=== PATIENT | male | born 1945 | race Caucasian/White ===

== ENCOUNTER 2020-07-22 13:59 | Observation (INO) | payer MEDICARE, OTHER ==
[~2020-07-22] VITALS: Ht 177.8 cm; Wt 94.3 kg
[2020-07-22 14:49] LABS: HEMOGLOBIN 16.1 gm/dl (14.0-17.5); RED BLOOD COUNT 4.94 M/UL (4.20-5.50); WHITE BLOOD COUNT 12.6 K/UL (4.5-11.0)
[2020-07-22 15:23] LABS: BUN/CREATININE RATIO 15 (0-10)
[2020-07-22] MEDS ORDERED: HYTRIN CAP 5 MG5 MG PO (18:16)
[2020-07-22] MEDS ORDERED: INDOCIN SR CAP75 MG PO (18:17)
[2020-07-22] MEDS ORDERED: CIPRO500 MG PO (18:19)
[2020-07-22] MEDS ORDERED: OMEPRAZOLE20 MG PO (18:21)
[2020-07-22] MEDS ORDERED: CLEARLAX119 GM PO (18:21)
[2020-07-22] MEDS ORDERED: HYDROCODON-ACE1 EAC6 PO (18:22)
[2020-07-22] MEDS ORDERED: AMBIEN10 MG PO (18:23)
[2020-07-22] MEDS ORDERED: ASPIRIN CHEWABL81 MG PO (18:23)
[2020-07-23 04:41] LABS: HEMOGLOBIN 14.4 gm/dl (14.0-17.5); WHITE BLOOD COUNT 11.3 K/UL (4.5-11.0)
[2020-07-23 04:46] LABS: RED BLOOD COUNT 4.44 M/UL (4.20-5.50)
[2020-07-23 04:51] LABS: BUN/CREATININE RATIO 14 (0-10)
[2020-07-24 05:32] LABS: RED BLOOD COUNT 4.34 M/UL (4.20-5.50); WHITE BLOOD COUNT 12.8 K/UL (4.5-11.0)
--- NOTE | 2020-07-24 05:46 | NUR ---
RESTED QUIETLY T/O NIGHT, VS REMAINED STABLE, DENIES COMPLAINTS, NO ACUTE DISTRESS NOTED
[2020-07-25 06:13] LABS: HEMOGLOBIN 14.6 gm/dl (14.0-17.5); RED BLOOD COUNT 4.48 M/UL (4.20-5.50); WHITE BLOOD COUNT 15.8 K/UL (4.5-11.0)
[2020-07-25 06:35] LABS: BUN/CREATININE RATIO 9 (0-10)
[2020-07-26 03:47] LABS: HEMOGLOBIN 13.8 gm/dl (14.0-17.5); RED BLOOD COUNT 4.29 M/UL (4.20-5.50); WHITE BLOOD COUNT 14.6 K/UL (4.5-11.0)
[2020-07-26 04:03] LABS: BUN/CREATININE RATIO 11 (0-10)
[2020-07-26] MEDS ORDERED: STIMULANT LAXA1 EACH PO (09:26)
[2020-07-26] MEDS ORDERED: FLAGYL500 MG PO (11:00)
== END 2020-07-26 13:19 | disposition home or self-care (01) ==
LOC: ER1 13:59 → CDU 17:41 → MED SURG 4 23:00
PROVIDERS: Emergency Medicine; Physician Assistant; ADMIT Internal Medicine
DX: K57.32 Diverticulitis of large intestine without perforation or abscess without bleeding (principal); D72.829 Elevated white blood cell count, unspecified; K59.00 Constipation, unspecified; M54.5 Low back pain; G89.29 Other chronic pain; Z87.891 Personal history of nicotine dependence; Z20.822 Contact with and (suspected) exposure to COVID-19; Z79.82 Long term (current) use of aspirin; Z79.899 Other long term (current) drug therapy
CPT/HCPCS: 36415; 80048; 80053; 81001; 82550; 82553; 83605; 83690; 83735; 83874; 84484; 85025; 87040; 87086; 96365; 96366; 96375; 96376; 99285; G0378; J1956; J2270; J2405; J2543; J7030; Q9967; U0002

== ENCOUNTER → 2021-11-03 | Outpatient (CLI) | payer MEDICARE, OTHER ==
[~2021-11-03] MED LIST: AMBIEN10 MG PO; ASPIRIN CHEWABL81 MG PO; CIPRO500 MG PO; CLEARLAX119 GM PO; FLAGYL500 MG PO; HYDROCODON-ACE1 EAC6 PO; HYTRIN CAP 5 MG5 MG PO; INDOCIN SR CAP75 MG PO; OMEPRAZOLE20 MG PO; STIMULANT LAXA1 EACH PO
== END ==
LOC: CT 14:48
DX: K43.9 Ventral hernia without obstruction or gangrene (principal); R10.13 Epigastric pain; R11.0 Nausea; K59.00 Constipation, unspecified; M62.08 Separation of muscle (nontraumatic), other site; K76.0 Fatty (change of) liver, not elsewhere classified
CPT/HCPCS: 36415; 74160; 82565; 84520; Q9967

== ENCOUNTER → 2021-11-26 | Outpatient (CLI) | payer MEDICARE, OTHER | LOC: RAD 11:30 | DX: J45.40 Moderate persistent asthma, uncomplicated (principal) | CPT/HCPCS: 71046 ==